=== PATIENT | male | born 1995 | race Caucasian/White ===

== ENCOUNTER 2020-02-03 21:14 | Emergency (ER) | payer OTHER, SELFPAY ==
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
[2020-02-03] MEDS ORDERED: Bacitracin Oint 1 GM U/D Packet TOP ONE (21:48)
[2020-02-03 22:20] VITALS: BP 130/79; PULSE 84
== END 2020-02-03 21:57 | disposition home or self-care (01) ==
LOC: MW.ED 21:14
DX: T24.101A Burn of first degree of unspecified site of right lower limb, except ankle and foot, initial encounter (principal); F84.0 Autistic disorder
CPT/HCPCS: 99282; 99283

== ENCOUNTER 2022-05-20 03:09 | Emergency (ER) | payer BC, OTHER ==
[2022-05-20] MEDS ORDERED: Acetaminophen 500 MG Tab PO ONE (03:32)
[2022-05-20 04:53] VITALS: BP 121/72; PULSE 71
== END 2022-05-20 04:19 | disposition home or self-care (01) ==
LOC: MW.ED 03:09
DX: M25.561 Pain in right knee (principal)
CPT/HCPCS: 73562; 99283; A9270; 99282

== ENCOUNTER 2024-01-24 16:30 | Emergency (ER) | payer OTHER, BC ==
[2024-01-24] MEDS: Lidocaine 1% 5 ML VIAL INJECT ONE (17:03)
[2024-01-24] MEDS: Diphtheria,Pertussis(Acell),Tetanus Vaccine 0.5 ML Syringe IM ONE (17:03)
[2024-01-24 17:16] VITALS: BP 133/82; PULSE 86
== END 2024-01-24 17:57 | disposition home or self-care (01) ==
LOC: MW.ED 16:30
DX: S61.210A Laceration without foreign body of right index finger without damage to nail, initial encounter (principal); S61.212A Laceration without foreign body of right middle finger without damage to nail, initial encounter; Z23 Encounter for immunization; X58.XXXA Exposure to other specified factors, initial encounter
CPT/HCPCS: 12001; 12002; 73130-26-RT; 73130-RT; 90471; 90715; 99283; 99283-25; J3490

== ENCOUNTER 2025-05-02 17:05 | Emergency (ER) | payer BC, OTHER ==
[2025-05-02] MEDS: Ketorolac 30 MG/ML SDV IM ONE (18:20)
[2025-05-02 18:47] VITALS: BP 126/76; PULSE 80
== END 2025-05-02 18:46 | disposition home or self-care (01) ==
LOC: MW.ED 17:05
DX: R07.81 Pleurodynia (principal); F17.200 Nicotine dependence, unspecified, uncomplicated; Z79.899 Other long term (current) drug therapy; Z75.3 Unavailability and inaccessibility of health-care facilities
CPT/HCPCS: 71101; 96372; 99283; J1885